=== PATIENT | male | born 1960 | race Caucasian/White ===

== ENCOUNTER → 2023-09-02 | Outpatient (REF) | payer OTHER ==
[2023-09-04 08:11] LABS: LDL DIRECT 149 mg/dL (0-99)
== END ==
LOC: M LAB REF 12:11
PROVIDERS: ATTEND Internal Medicine
DX: E78.5 Hyperlipidemia, unspecified (principal)

== ENCOUNTER 2024-02-27 10:44 | Day surgery (SDC) | payer OTHER ==
[~2024-02-27] VITALS: Ht 182.9 cm; Wt 97.5 kg
[~2024-02-27 10:44] MED LIST: ASPI81TA26 PO; LIDOCAINE 2% 100MG/5ML SDV (FOR ANES.) As Ordered ONE; MIDAZOLAM INJ 2MG/2ML VIAL As Ordered ONE; ONDANSETRON 4MG 2ML VIAL As Ordered ONE; ROCURONIUM BROMIDE 50MG/5ML VIAL As Ordered ONE; ROSU10TA6 PO; SUGAMMADEX SODIUM 500 MG/5 ML VIAL (BRIDION) As Ordered ONE; fentaNYL 100 MCG/2 ML INJECTION As Ordered ONE; propofoL 200 MG/20 ML VIAL As Ordered ONE
[2024-02-27] MEDS ORDERED: LR 1,000 ML IV SCH ×2 (11:55→16:10)
[2024-02-27] MEDS: ceFAZolin SOD 2 GM in IV 1 EA IV ONE (15:35)
[2024-02-27] MEDS ORDERED: KETOROLAC 60MG 2ML VIAL As Ordered ONE (15:56)
[2024-02-27] MEDS ORDERED: ONDANSETRON 4MG 2ML VIAL IV PRN (16:10)
[2024-02-27] MEDS ORDERED: HYDROMORPHONE HCL 0.5 MG/ 0.5 ML SYRINGE IV PRN (16:10)
[2024-02-27] MEDS ORDERED: fentaNYL 100 MCG/2 ML INJECTION IV PRN (16:10)
[2024-02-27] MEDS: oxyCODONE 5MG TAB PO PRN (16:33)
[2024-02-27 17:41] VITALS: BP 143/84; TEMP 97.9; O2SAT 100
== END 2024-02-27 18:01 | disposition home or self-care (01) ==
LOC: M SDC 10:44
PROVIDERS: ATTEND Surgery
DX: K42.9 Umbilical hernia without obstruction or gangrene (principal); E78.00 Pure hypercholesterolemia, unspecified; Z79.899 Other long term (current) drug therapy; Z79.82 Long term (current) use of aspirin
CPT/HCPCS: 49591; 88302; C9290; J0665; J0690; J1100; J1885; J2250; J2405; J3010